=== PATIENT | male | born 1930 | race Caucasian/White ===

== ENCOUNTER 2022-02-13 11:34 | Emergency (ER) | payer MEDICARE, BC ==
[~2022-02-13] VITALS: Ht 162.6 cm; Wt 61.2 kg
--- NOTE | 2022-02-13 11:53 | NUR ---
MD AT BEDSIDE FOR EVALUATION
[2022-02-13] MEDS ORDERED: ASPI81TA31 PO (11:58)
[2022-02-13] MEDS ORDERED: AMLO-212 PO (11:58)
[2022-02-13] MEDS ORDERED: ALLO100T PO (11:58)
[2022-02-13] MEDS ORDERED: CARV6.25 PO (11:58)
[2022-02-13] MEDS ORDERED: MULT-594 PO (11:58)
--- NOTE | 2022-02-13 12:07 | NUR ---
TO RADIOLOGY VIA [facility] FOR CT SCAN ORDERED.
--- NOTE | 2022-02-13 12:32 | NUR ---
DCD instructions given to pt. who verbalized undertanding, patient left room accompanied by daughter. [id number]. vitals stable.
--- NOTE | 2022-02-13 13:17 | NUR ---
Patient left while the undersignee was on lunch break. as stated copy of the ct head reading provided to pt.
== END 2022-02-13 13:17 | disposition home or self-care (01) ==
LOC: ER 11:34
DX: S00.211A Abrasion of right eyelid and periocular area, initial encounter (principal); W06.XXXA Fall from bed, initial encounter; Y92.013 Bedroom of single-family (private) house as the place of occurrence of the external cause; I48.91 Unspecified atrial fibrillation; Z79.01 Long term (current) use of anticoagulants; I50.9 Heart failure, unspecified; I25.10 Atherosclerotic heart disease of native coronary artery without angina pectoris; Z95.0 Presence of cardiac pacemaker
CPT/HCPCS: 70450; A4663